=== PATIENT | female | born 1955 | race Caucasian/White ===

== ENCOUNTER 2019-08-12 14:37 | Outpatient (CLI) | payer MEDICARE, SELFPAY ==
--- NOTE | 2019-08-12 | MR_ITS ---
WS: [id number] MRI LUMBAR SPINE NONCONTRAST TECHNIQUE: Sagittal T1, T2 and STIR imaging. Axial T1 and T2 imaging. CLINICAL INFORMATION: SPINAL STENOSIS LUMBAR REGION COMPARISON: None. FINDINGS: Mild lumbar curve. No acute compression. No high-grade central canal stenosis. T2 hyperintense lesion seen on the barrel assembler helper imaging at T7 and likely incidental hemangioma. L1-L2: Normal. L2-L3: No significant disc bulging. Mild facet arthropathy. Spinal canal and foramen are patent. L3-L4: Mild annular bulging with mild central canal stenosis. Narrowing of the right subarticular rec ess. Mild right and no significant left foraminal narrowing. Moderate facet arthropathy. L4-L5: Mild annular bulging with slight narrowing of the left subarticular recess. Mild central canal stenosis. Encroachment traversing left L5 nerve root. Mild left and no significant right foraminal n arrowing. Moderate facet arthropathy. L5-S1: No significant disc bulging. Moderate facet arthropathy. Spinal canal and foramen are patent. Visualized pelvic bony structures: Normal. Paravertebral soft tissues: Normal. MR/MR lumbar spine wo con* [id number] IMPRESSION: 1. Mild lumbar curve. No acute compression. No high-grade central canal stenos is. 2. Mild central canal stenosis L3-L4 and L4-L5 with slight effacement of ventr al thecal sac. 3. Narrowing of the right L3-L4 and left L4-5 subarticular recess. 4. Mild right L3-4 and left L4-5 foraminal narrowing with slight encroachment on the exiting right L3 and left L4 nerve roots respectively. 5. Moderate facet arthropathy L3-4, L4-L5, and L5-S1.
== END 2019-08-12 14:38 | disposition home or self-care (01) ==
LOC: RADSHAW 14:44
PROVIDERS: PCP Nurse Practitioner Family; Visit Provider Nurse Practitioner Family
DX: M48.061 Spinal stenosis, lumbar region without neurogenic claudication (principal); M47.816 Spondylosis without myelopathy or radiculopathy, lumbar region; G43.711 Chronic migraine without aura, intractable, with status migrainosus
CPT/HCPCS: 64615; 72148; 99212; J0585

== ENCOUNTER → 2019-12-06 12:32 | Outpatient (BNVA) | payer MEDICARE, SELFPAY | PROVIDERS: PCP Nurse Practitioner Family; Visit Provider Specialist | DX: G43.711 Chronic migraine without aura, intractable, with status migrainosus (principal); I50.9 Heart failure, unspecified; R06.02 Shortness of breath; Z79.01 Long term (current) use of anticoagulants; I50.33 Acute on chronic diastolic (congestive) heart failure; R00.2 Palpitations; R94.31 Abnormal electrocardiogram [ECG] [EKG]; I63.89 Other cerebral infarction; I10 Essential (primary) hypertension; E78.5 Hyperlipidemia, unspecified; M48.00 Spinal stenosis, site unspecified | CPT/HCPCS: 64615; 80053; 83880; 84443; 85025; 96372; J0585; J1885; J2405 ==

== ENCOUNTER 2019-12-30 10:04 | Outpatient (CLI) | payer MEDICARE, SELFPAY ==
[2019-12-30 10:23] VITALS: BMI 42.5
--- NOTE | 2019-12-30 11:31 | ECG_ITS ---
[facility] Test Date: 2019-12-30 Pat Name: Kirill Gaming Department: Room: Gender: Female Rounder Hand: : 1955 Requested By: Florecita Gould Order Number: [id number] Kimo MD: Florecita Gould M.D. Interpretive Statements NAME OF STUDY: LEXISCAN SESTAMIBI STRESS TEST INDICATION: Abnormal EKG PROCEDURE: At the baseline, the EKG revealed normal sinus rhythm with a poor R wave progression. Low voltage complexes in the precordial leads. Nonspecific ST changes in the inferior leads.. The baseline blood pressure was 141/91 mm Hg with a heart rate of 85 beats/min. Lexiscan was infused over a period of 20 seconds. A total of 0.4 milligrams of Lexiscan was infused. The stress phase was continued for a total of 5 minutes. Heart rate at the end of the stress phase was 93 with a blood pressure 175/75. The EKG at the peak infusion revealed no significant changes. Sestamibi was injected 20 seconds after the Lexiscan infusion. Blood pressure at the end of the recovery phase was 161/85 with a heart rate of 94 per minute. CONCLUSION: 1. No significant EKG changes with the LexiScan infusion 2. No LexiScan induced chest pain or cardiac arrhythmia 3. Normal blood pressure and heart rate response 4. Sestamibi/sestamibi perfusion scan pending; see separate report. Electronically Signed On 01-04-2020 13:59:57 CDT by Florecita Gould M.D. [id number]
--- NOTE | 2019-12-30 11:31 | NMCV_ITS ---
NM ha perf SPECT r/s* [id number] Kirill Gaming Age: 64 Gender: F : 1955 Exam Date: 12/30/2019 11:44 Ordering Phys: Florecita Gould MD ([email or web address]) Technologist: RICHARD Sequeira Exam Location: [facility] Indications: ABNORMAL EKG STRESS TEST Please see separate stress test report in [employer] for full findings IMAGE PROTOCOL Rest/Stress 1 Lexiscan Day Radiopharmaceutical Dose (mCi) Administration Site Administered by Rest: Tc-99m 10.7 IV RICHARD Sequeira Sestamibi Stress:Tc-99m 33.0 IV RICHARD Beebe Sestamibi Rest: 30-Dec-2019 60 Discovery 630 Stress: 30-Dec-2019 30 Discovery 630 0.4mg Lexiscan. Images obtained in supine and prone position. SPECT RESULTS Technical Quality: Excellent Raw Data Analysis: Breast attenuation Image Corrections: No attenuation or motion correction applied Summed Stress Score: 1 Summed Rest Score: 0 Summed Difference Score: 1 PERFUSION FINDINGS Very small area of decreases uptake was noted in the apical region with some reversibility, with the SPECT imaging. With the polar plot, there was no significant reversibility FUNCTIONAL RESULTS (calculated via Gated SPECT) Stress Image LV EF (%): 79 Stress EDV (mL):72 TID: 1.05 Stress ESV (mL):15 FUNCTIONAL FINDINGS: Segmental wall motion analysis revealing no gross wall motion normalities. IMPRESSIONS 1. Myocardial perfusion imaging revealing a very small area of inconsistent reversible defect in the LV apex, may suggest ischemia in the distribution of the distal LAD. Because of the inconsistency, the reliability is questionable. 2. Normal LV ejection fraction of 79%. 3. LV wall motion analysis revealing no gross wall motion abnormalities. 4. Normal LV volume No similar previous studies are available for comparison Dr Florecita Gould MD FACC (Electronically Signed) Final Date: 30 December 2019 21:29 S
[2019-12-30] MEDS: regadenoson 0.4 Mg/5 ml Syringe IVP (12:27)
[2019-12-30 12:44] VITALS: BP 161/85; PULSE 94
--- NOTE | 2019-12-30 14:15 | USCV_ITS ---
[facility] Age: 64 Gender: F : 1955 Exam Date: 12/30/2019 11:37 Ordering Phys: Florecita Gould MD ([email or web address]) Technologist: Rebeca Tsang Exam Location: [facility] [place] Indication: CHF BP: / HR: 105 Rhythm: Sinus Technical Quality: Technically difficult study MEASUREMENTS (Male / Female) Normal Values 2D ECHO LV Diastolic Diameter PLAX 3.4 cm 4.2 - 5.9 / 3.9 - 5.3 cm LV Systolic Diameter PLAX 2.0 cm IVS Diastolic Thickness 1.6 cm 0.6 - 1.0 / 0.6 - 0.9 cm IVS Systolic Thickness 2.2 cm LVPW Diastolic Thickness 1.3 cm 0.6 - 1.0 / 0.6 - 0.9 cm LVPW Systolic Thickness 2.1 cm LVOT Diameter 2.1 cm LV Ejection Fraction 2D Teich 74.1 % LA Diameter 2.7 cm LA Width 2.4 cm LA Height 5.1 cm RA Width 3.4 cm RA Height 4.7 cm M-MODE LV Diastolic Diameter MM 4.4 cm 4.2 - 5.9 / 3.9 - 5.3 cm LV Systolic Diameter MM 2.1 cm LV Ejection Fraction MM Teich 83.7 % IVS Diastolic Thickness MM 0.8 cm 0.6 - 1.0 / 0.6 - 0.9 cm IVS Systolic Thickness MM 1.6 cm LVPW Diastolic Thickness MM 0.9 cm 0.6 - 1.0 / 0.6 - 0.9 cm LVPW Systolic Thickness MM 1.6 cm Aortic Annulus Diameter 2.9 cm LA Ao Ratio MM 1.0 MV E Point Septal Separation 0.3 cm DOPPLER AV Peak Velocity 104.0 cm/s LVOT Peak Velocity 104.0 cm/s AV Area Cont Eq vti 3.4 cm squared AV Area Cont Eq pk 3.3 cm squared MV Peak Velocity 152.0 cm/s MV Area PHT 4.3 cm squared Mitral E to A Ratio 0.5 MV E' Velocity 32.5 cm/s Mitral E to MV E' Ratio 5.7 Mitral E to LV E' Lateral Ratio 5.5 Mitral E to LV E' Septal Ratio 5.9 TR Peak Velocity 84.0 cm/s TR Peak Gradient 2.8 mmHg Right Atrial Pressure 3.0 mmHg Pulmonary Artery Systolic Pressu 5.8 mmHg PV Peak Velocity 90.0 cm/s RV Acceleration Time 0.1 s FINDINGS Left Ventricle Normal left ventricular size and systolic function, EF 80%.moderate left ventricular hypertrophy. No regional wall motion abnormalities. Grade I/IV diastolic dysfunction (abnormal relaxation filling pattern), normal to mildly elevated filling pressures. Right Ventricle The right ventricle is normal in size and function. Right Atrium The right atrium is normal in size. Left Atrium The left atrium is normal in size. Mitral Valve Mild mitral annular calcification. Aortic Valve No gross abnormalities noted no gross abnormalities noted Tricuspid Valve Structurally normal tricuspid valve. Pulmonic Valve Pulmonic valve not well visualized. Pericardium Normal pericardium without effusion. Aorta Mildly dilated ascending aorta measuring 3.9 cm in diameter, and above the level of the isthmus CONCLUSIONS Normal left ventricular size and systolic function, EF 80%. Moderate left ventricular hypertrophy. No regional wall motion abnormalities. Grade I/IV diastolic dysfunction (abnormal relaxation filling pattern), normal to mildly elevated filling pressures. Mild mitral annular calcification. There is no pericardial effusion. There are no intracardiac masses. No previous study is available for comparison. Dr Florecita Gould MD FACC (Electronically Signed) Final Date: 31 December 2019 09:29 S
== END 2019-12-30 10:05 | disposition home or self-care (01) ==
LOC: CDL 10:06
PROVIDERS: PCP Nurse Practitioner Family; Visit Provider Internal Medicine Cardiovascular Disease
DX: R06.02 Shortness of breath (principal); I50.9 Heart failure, unspecified; I34.0 Nonrheumatic mitral (valve) insufficiency
CPT/HCPCS: 78452; 93017; 93306; A9500; J2785

== ENCOUNTER → 2020-03-02 12:15 | Outpatient (BNVA) | payer MEDICARE, MEDICAID, SELFPAY | PROVIDERS: PCP Nurse Practitioner Family; Visit Provider Specialist | DX: G43.711 Chronic migraine without aura, intractable, with status migrainosus (principal); R56.9 Unspecified convulsions | CPT/HCPCS: 64615; 99212; J0585 ==

== ENCOUNTER → 2020-05-25 12:36 | Outpatient (BNVA) | payer MEDICARE, MEDICAID, SELFPAY | PROVIDERS: PCP Nurse Practitioner Family; Visit Provider Specialist | DX: G43.711 Chronic migraine without aura, intractable, with status migrainosus (principal); G25.0 Essential tremor; R42 Dizziness and giddiness; M48.00 Spinal stenosis, site unspecified | CPT/HCPCS: 64615; 99214; J0585 ==

== ENCOUNTER 2020-06-02 10:56 | Outpatient (CLI) | payer MEDICARE, MEDICAID, SELFPAY ==
[2020-06-02 11:32] LABS: Blood Urea Nitrogen 10 mg/dL (8-23)
[2020-06-02] MEDS: iohexol 300 mg/mL 50 mL Btl IV (12:19)
[2020-06-02] MEDS: iohexol 300 mg/mL 100 mL Btl IV (12:41)
--- NOTE | 2020-06-02 13:30 | CT_ITS ---
WS: [id number] CT ABDOMEN AND PELVIS WITH CONTRAST HISTORY: R63.4 - Abnormal weight loss TECHNIQUE: Imaging performed of the abdomen and pelvis with IV contrast. Single phase imaging of the abdomen. Coronal and sagittal reformats are submitted. All CT scans at [facility] use at least one of these dose optimization techniques: automated exposure control; mA and/or kV adjustment per patient size (includes targeted exams where dose is matched to clinical indication); or iterativ e reconstruction. IV CONTRAST: Omnipaque 300; 95 mL IV. Oral contrast: Yes. DLP: 1129.93 mGycm COMPARISON: None available. Lower thorax: Lung bases are clear. Heart is normal size. Small hiatal hernia. Oral contrast in the d istal esophagus. Liver/biliary system: Normal size with no intrahepatic dilatation. Gallbladder: Normal. No gallstones or wall thickening. No pericholecystic fluid. Pancreas: Normal. Spleen: Normal. Adrenal glands: Normal. Right kidney: Normal. Left kidney: Normal. Aorta: Mild atherosclerosis with no aneurysm. Lymphadenopathy: None. Free fluid: None. GI tract: Fat-containing ovoid mass measuring 1.9 cm near the cecum is probably a small lipoma. There is very mild wall thickening at the cecum but no definite nodular mass seen by CT. The appendix is n ot definitely identified. There is mild diffuse constipation. No obstructing colonic lesion. Abdominal wall: Unremarkable abdominal wall. No hernia. Pelvis: Prior hysterectomy. No free fluid or adenopathy in the pelvis. Visualized urinary bladder is normal. Bones: No destructive bone lesions. Sclerotic focus in the LEFT ilium is probably a bone island. The cortex remains intact. Mild narrowing of the hip joints. CT/CT abdomen pelvis w con* [id number] IMPRESSION: 1. No acute abdominal or pelvic abnormalities are identified. 2. Mild diffuse constipation. 3. Fatty 1.9 cm lesion in the cecum is probably a lipoma. 4. No ascites or adenopathy. 5. Small hiatal hernia with gastroesophageal reflux.
== END 2020-06-02 10:57 | disposition home or self-care (01) ==
LOC: RADWPI 10:57
PROVIDERS: PCP Internal Medicine; Visit Provider Internal Medicine
DX: R63.4 Abnormal weight loss (principal); N32.89 Other specified disorders of bladder; K44.9 Diaphragmatic hernia without obstruction or gangrene; K63.9 Disease of intestine, unspecified; K59.00 Constipation, unspecified; R30.0 Dysuria
CPT/HCPCS: 74177; 81000; 81003; 82565; 84520; 87086; Q9967

== ENCOUNTER → 2020-06-27 16:02 | Outpatient (BNVA) | payer MEDICARE, MEDICAID, SELFPAY | PROVIDERS: PCP Internal Medicine; Visit Provider Internal Medicine | DX: R81 Glycosuria (principal) | CPT/HCPCS: 80053; 80061; 83036; 83721; 84443; 85025 ==

== ENCOUNTER → 2020-08-17 12:23 | Outpatient (BNVA) | payer MEDICARE, MEDICAID, SELFPAY | PROVIDERS: PCP Internal Medicine; Visit Provider Specialist | DX: G43.709 Chronic migraine without aura, not intractable, without status migrainosus (principal); G25.0 Essential tremor; R42 Dizziness and giddiness | CPT/HCPCS: 64615; 99213; J0585 ==

== ENCOUNTER → 2020-11-09 12:26 | Outpatient (BNVA) | payer MEDICARE, MEDICAID, SELFPAY | PROVIDERS: PCP Internal Medicine; Visit Provider Specialist | DX: G43.709 Chronic migraine without aura, not intractable, without status migrainosus (principal); R81 Glycosuria; E11.9 Type 2 diabetes mellitus without complications | CPT/HCPCS: 64615; 83036; J0585 ==

== ENCOUNTER → 2021-02-07 15:07 | Outpatient (BNVA) | payer MEDICARE, MEDICAID, SELFPAY | PROVIDERS: PCP Internal Medicine; Visit Provider Specialist | DX: R20.0 Anesthesia of skin (principal); R20.2 Paresthesia of skin; G43.709 Chronic migraine without aura, not intractable, without status migrainosus | CPT/HCPCS: 64615; 95910; J0585 ==

== ENCOUNTER → 2021-07-19 14:03 | Outpatient (BNVA) | payer MEDICARE, MEDICAID, SELFPAY | PROVIDERS: PCP Internal Medicine; Visit Provider Specialist | DX: G90.512 Complex regional pain syndrome I of left upper limb (principal); G25.0 Essential tremor; F41.9 Anxiety disorder, unspecified | CPT/HCPCS: 99214; 99215 ==

== ENCOUNTER → 2021-07-30 12:54 | Outpatient (BNVA) | payer MEDICARE, MEDICAID, SELFPAY | PROVIDERS: PCP Internal Medicine; Visit Provider Podiatrist Foot & Ankle Surgery | DX: E11.42 Type 2 diabetes mellitus with diabetic polyneuropathy (principal); M20.41 Other hammer toe(s) (acquired), right foot; M20.42 Other hammer toe(s) (acquired), left foot; M79.672 Pain in left foot; M79.671 Pain in right foot | CPT/HCPCS: 73630; 99203; 99204 ==

== ENCOUNTER 2021-09-05 11:35 | Outpatient (CLI) | payer MEDICARE, MEDICAID, SELFPAY ==
--- NOTE | 2021-09-05 12:00 | MR_ITS ---
WS: [id number] MRI OF THE LEFT HAND WITHOUT GADOLINIUM ENHANCEMENT INDICATION: Fingertip pain/sensitivity TECHNIQUE: Axial T1, axial T2, coronal T1, coronal STIR, sagittal T2 imaging. Coronal 3-D fat sat ranulfo ging FINDINGS: Mild degenerative arthritis involving the MCP joints. Small erosions in the metacarpal head s more prominent in the 2nd and 3rd metacarpal head. Moderate IP joint narrowing involving the PIP an d DIP joints with small periarticular erosions. Subchondral cystic changes involving the proximal and distal carpal row. No evidence of intraosseous mass or lesion visualized in the distal 2nd 3rd or 4t h phalanx. Phalanges appear normal. Degenerative arthritis at the 1st CMC and STT with subchondral cy stic changes. MR/MR hand LT wo con* [id number] IMPRESSION: 1. Distal 2nd 3rd and 4th phalanges are normal in appearance. No remarkable os seous or soft tissue lesions. 2. Moderate joint space narrowing involving the PIP and DIP joints with periar ticular erosions. 3. Erosive changes involving the metacarpal heads worse involving the 1st and 2nd metacarpal heads. 4. Subchondral cystic change involving the carpal bones. 5. No other significant findings.
== END 2021-09-05 11:36 | disposition home or self-care (01) ==
LOC: RAD 11:39
PROVIDERS: PCP Internal Medicine; Visit Provider Specialist
DX: M79.642 Pain in left hand (principal); R20.0 Anesthesia of skin; R20.2 Paresthesia of skin
CPT/HCPCS: 73218

== ENCOUNTER → 2021-09-11 11:19 | Outpatient (BNVA) | payer MEDICARE, MEDICAID, SELFPAY | PROVIDERS: PCP Internal Medicine; Visit Provider Internal Medicine Cardiovascular Disease | DX: I11.0 Hypertensive heart disease with heart failure (principal); I50.33 Acute on chronic diastolic (congestive) heart failure; R00.2 Palpitations; R07.89 Other chest pain; E78.5 Hyperlipidemia, unspecified; Z86.73 Personal history of transient ischemic attack (TIA), and cerebral infarction without residual deficits; E11.9 Type 2 diabetes mellitus without complications; I49.3 Ventricular premature depolarization; I49.1 Atrial premature depolarization; Z79.84 Long term (current) use of oral hypoglycemic drugs | CPT/HCPCS: 80048; 83880; 93005; 93229; 99214; 99215 ==

== ENCOUNTER 2023-03-16 09:07 | Emergency (ER) | payer MEDICARE, MEDICAID, SELFPAY ==
[2023-03-16 09:16] VITALS: PULSE 77; RESP 18; O2SAT 99; BMI 30.7
--- NOTE | 2023-03-16 09:51 | CTR_ITS ---
PROCEDURE INFORMATION: Exam: CT Head Without Contrast Exam date and time: 03/16/2023 10:21 AM Age: 67 years old Clinical indication: Pain; Headache; Additional info: TORRES trauma. TECHNIQUE: Imaging protocol: Computed tomography of the head without contrast. Radiation optimization: All CT scans at this facility use at least one of these dose optimization techniques: automated exposure control; mA and/or kV adjustment per patient size (includes targeted exams where dose is matched to clinical indication); or iterative reconstruction. REPORTING DATA: Count of CT and Cardiac NM exams in prior 12 months: This patient has received 0 known CTs and 0 known cardiac nuclear medicine studies in the 12 months prior to the current study. COMPARISON: MR head wo con* [id number] 01/01/2018 12:57 PM RADIATION DOSE METRICS: Total DLP (mGy-cm): 981.4 FINDINGS: Brain: Mild hypoattenuating foci are noted in the anterior lateral ventricular periventricular white matter bilaterally. No intracranial hemorrhage. No mass or acute cortical infarction identified. Ventricles: Prominence of the ventricular system and subarachnoid spaces is consistent with the patient's age of 67 years. Paranasal sinuses: Visualized sinuses are unremarkable. No fluid levels. Mastoid air cells: Visualized mastoid air cells are well aerated. Bones/joints: No acute abnormality. No acute fracture. Soft tissues: Unremarkable. Vasculature: Atherosclerotic calcifications are present involving the carotid artery siphons bilaterally and the distal right vertebral artery. CT/CT head wo con* [id number] IMPRESSION: 1. Age appropriate supratentorial and infratentorial atrophy. 2. Mild chronic white matter microvascular ischemic disease. 3. No acute intracranial abnormality/injury identified.
--- NOTE | 2023-03-16 10:14 | CTR_ITS ---
PROCEDURE INFORMATION: Exam: CT Cervical Spine Without Contrast Exam date and time: 03/16/2023 10:21 AM Age: 67 years old Clinical indication: Injury or trauma; Fall; Blunt trauma TECHNIQUE: Imaging protocol: Computed tomography of the cervical spine without contrast. Radiation optimization: All CT scans at this facility use at least one of these dose optimization techniques: automated exposure control; mA and/or kV adjustment per patient size (includes targeted exams where dose is matched to clinical indication); or iterative reconstruction. REPORTING DATA: Count of CT and Cardiac NM exams in prior 12 months: This patient has received 0 known CTs and 0 known cardiac nuclear medicine studies in the 12 months prior to the current study. COMPARISON: CT head wo con* [id number] 03/16/2023 10:21 AM RADIATION DOSE METRICS: Total DLP (mGy-cm): 651.6 FINDINGS: Bones/joints: No fracture. No destructive bony process identified. Mild atlantodental osteoarthritis. Mild left C2-C3 and C3-C4 primary facet osteoarthritis. Mild C4-C5 anterolisthesis. Mild bilateral C4-C5 primary facet osteoarthritis. Moderate bilateral C4-C5 neural foraminal narrowing. Mild C5-C6 spondylosis. Severe right C5-C6 neural foraminal narrowing. Slight C7-T1 anterolisthesis. Lungs: Lung apices are normal. Vasculature: Bilateral carotid atherosclerotic calcifications. Soft tissues: Unremarkable. CT/CT cervical spin wo con* [id number] IMPRESSION: 1. Degenerative changes as above. 2. No acute cervical spinal bony injury identified.
--- NOTE | 2023-03-16 10:15 | W.ED.HEATRA ---
HPI - Head Injury General: Chief complaint: Head Injury Stated complaint: head discomfert/ fall x2 days ago Time Seen by Provider: 03/16/23 10:10 Source: patient Mode of arrival: ambulatory Limitations: no limitations History of Present Illness: 67-year-old female states on Friday evening she had fell in her home. States she did hit her head on the floor does have a contusion to right forehead she also has neck pain. She denies any other injuries but states that since then she been having headaches along with some feeling of lightheadedness. She is not on any blood thinners denies any syncopal events denies any loss consciousness. Associated symptoms: Reports neck pain; Deny nausea or vomiting Review of Systems Const: Denies: fever(s), chills, body aches or change in appetite Eyes: Denies: blurry vision or eye discomfort ENMT: Denies: throat pain or dental pain Card: Denies: chest pain Resp: Denies: dyspnea GI: Denies: abdominal pain, nausea, vomiting or diarrhea Musc: Reports: neck pain; Denies: back pain Neuro: Reports: headache(s) PFSH ED PFSH: Medical History Vertigo SOB (shortness of breath) Dyslipidemia Benign essential hypertension with target blood pressure below 140/90 Palpitations with regular cardiac rhythm Asthma Spinal stenosis Chronic insomnia CHF (congestive heart failure) CVA (cerebral vascular accident) Surgical History H/O section H/O: hysterectomy History of carpal tunnel surgery Family History Other Adopted Social History Smoking and tobacco/nicotine status: never used tobacco/nicotine Second hand smoke exposure: No Alcohol intake: never Substance/Drug Use: never Adopted: Yes Physical Exam Const: COMMON NORMALS: no acute distress, patient oriented x3 and healthy appearing HENMT: COMMON NORMALS: normocephalic; head/scalp not atraumatic (contusion over right eye) HEAD & SCALP: normocephalic; not atraumatic (contusion over right eye) Eye: COMMON NORMALS: Equal, round and reactive pupils present and EOMs intact bilaterally PUPIL: Yes Equal, round and reactive pupils present Neck/C-Spine: OTHER: Paraspinal tenderness along C-spine Chest: COMMONS NORMALS: normal inspection of the chest Resp: COMMON NORMALS: normal respiratory effort Cardio: COMMON NORMALS: regular rate, regular rhythm and No murmurs present (Cardio) RATE: regular rate RHYTHM: regular rhythm Extremity: COMMON NORMALS: normal to inspection and full ROM Neuro: COMMON NORMALS: patient oriented x3, moves all extremities and no focal motor deficits Psych: COMMON NORMALS: mental status grossly normal, Normal thought process present and cooperative THOUGHT PROCESS: Normal thought process present Skin: COMMON NORMALS: no rashes or lesions noted and no wounds GENERAL SKIN EXAM: no rashes or lesions noted Course Vital Signs: Vital signs: Vital Signs Pulse Rate 91 03/16/23 10:22 Respiratory Rate 18 03/16/23 09:16 Blood Pressure 149/96 03/16/23 10:22 Pulse Oximetry 99 03/16/23 09:16 MDM - Head Injury Medcial Decision Making Patient presents here with a closed head injury from a fall CT of her head and C-spine is negative. She is well-appearing here she is stable for discharge she is follow-up PCP and return if worsening. Medical Records I reviewed the patient's medical records. Lab Data Radiology Impressions Head CT 03/16/23 09:51 IMPRESSION: 1. Age appropriate supratentorial and infratentorial atrophy. 2. Mild chronic white matter microvascular ischemic disease. 3. No acute intracranial abnormality/injury identified. All radiology interpretation(s) finalized by discharge Discharge Plan Discharge Patient Disposition: Home Clinical Impression: Closed head injury Qualifiers: Encounter type: initial encounter Qualified Code(s): S09.90XA - Unspecified injury of head, initial encounter Condition: Stable Prescriptions: No Action CBD oil PO DAILY (DME) Diabetic shoes with 3 sets of Inserts See Rx Instructions .Route .MEDSUPPLY Qty: 1 0RF Rx Instructions: As directed by DARREL&O Paxlovid 150 mg x 2- 100 mg tablet See Rx Instructions PO .COMPLEX Qty: 6 0RF Rx Instructions: take TWO 150 mg tablets of nirmatrelvir with ONE 100 mg tablet of ritonavir twice daily for 5 days PO Adjust for GFR 30-60. budesonide-formoterol [Symbicort] 160-4.5 mcg/actuation HFA aerosol inhaler 2 puff inhalation BID Qty: 10.2 0RF Rx Instructions: 340 B if needed albuterol sulfate 90 mcg/actuation HFA aerosol inhaler 2 puff inhalation QID PRN (Reason: shortness of breath or wheezing) Qty: 8.5 0RF levofloxacin 750 mg tablet 750 mg PO DAILY 5 Days Qty: 5 0RF metformin 1,000 mg tablet 1,000 mg PO DAILY Qty: 90 3RF furosemide 40 mg tablet 40 mg PO BID Qty: 60 3RF Rx Instructions: patient needs an early refill lisinopril 40 mg tablet 40 mg PO DAILY Qty: 30 3RF zolpidem 10 mg tablet 10 mg PO .QHS Qty: 30 5RF gabapentin 300 mg capsule 300 mg PO QID Qty: 360 5RF rosuvastatin 40 mg tablet 40 mg PO DAILY Qty: 90 3RF ezetimibe [Zetia] 10 mg tablet 10 mg PO DAILY Qty: 90 3RF scopolamine base 1 mg over 3 days patch 3 day See Rx Instructions .ROUTE .COMPLEX Qty: 4 0RF Dose Instruction: APPLY 1 PATCH TOPICALLY EVERY 3 DAYS NEEDED Rx Instructions: APPLY 1 PATCH TOPICALLY EVERY 3 DAYS NEEDED tizanidine 4 mg tablet See Rx Instructions .ROUTE .COMPLEX Qty: 270 2RF Dose Instruction: TAKE 1 TABLET BY MOUTH 3 TIMES A DAY IF NEEDED Rx Instructions: TAKE 1 TABLET BY MOUTH 3 TIMES A DAY IF NEEDED Discharge Orders: Discharge ED (Routine); Ordered 03/16/23 Ordered By: Efrain Pagan Referrals: Clinton Mcrae MD [Primary Care Provider] - 4-7 days Discharge Diet: Advance as tolerated Discharge Activity: Resume usual activity Patient Instructions: Head Injury (ED) Coding Level of Care Code ED [place] [employer] for Jennie Enamorado
[2023-03-16 10:22] VITALS: BP 148/91; BP 149/96; BP 157/92; PULSE 78; PULSE 79; PULSE 91
[2023-03-16] MEDS: ondansetron 2 mg/ML SDV 2 mL 4 MG IM (10:55)
[2023-03-16] MEDS: ketorolac 30 mg/mL INJ IM (10:55)
[2023-03-16 11:14] VITALS: PULSE 77; RESP 18; O2SAT 99
== END 2023-03-16 11:15 | disposition home or self-care (01) ==
PROVIDERS: Emergency Provider Emergency Medicine; PCP Internal Medicine
DX: S00.83XA Contusion of other part of head, initial encounter (principal); E78.5 Hyperlipidemia, unspecified; I11.0 Hypertensive heart disease with heart failure; I50.9 Heart failure, unspecified; Z86.73 Personal history of transient ischemic attack (TIA), and cerebral infarction without residual deficits; W19.XXXA Unspecified fall, initial encounter
CPT/HCPCS: 70450; 72125; 96372; 99284; J1885; J2405

== ENCOUNTER → 2023-10-14 13:00 | Outpatient (BNVA) | payer MEDICARE, MEDICAID, SELFPAY | PROVIDERS: PCP Internal Medicine; Visit Provider Podiatrist Foot & Ankle Surgery | DX: E11.42 Type 2 diabetes mellitus with diabetic polyneuropathy (principal); M20.41 Other hammer toe(s) (acquired), right foot; M20.42 Other hammer toe(s) (acquired), left foot; M21.612 Bunion of left foot; M21.41 Flat foot [pes planus] (acquired), right foot; M21.42 Flat foot [pes planus] (acquired), left foot; Z79.84 Long term (current) use of oral hypoglycemic drugs | CPT/HCPCS: 99213 ==

== ENCOUNTER 2023-11-13 10:14 | Outpatient (CLI) | payer MEDICARE, MEDICAID, SELFPAY | END 2023-11-13 10:15 | disposition home or self-care (01) | LOC: SPT 10:15 | PROVIDERS: PCP Internal Medicine; Visit Provider Podiatrist Foot & Ankle Surgery | DX: Z46.89 Encounter for fitting and adjustment of other specified devices (principal); E11.42 Type 2 diabetes mellitus with diabetic polyneuropathy; M20.41 Other hammer toe(s) (acquired), right foot; M20.42 Other hammer toe(s) (acquired), left foot | CPT/HCPCS: L3030 ==